=== PATIENT | male | born 1990 | race Hispanic/Latino ===

== ENCOUNTER 2021-12-14 16:14 | Emergency (ER) | payer SELFPAY ==
[~2021-12-14] VITALS: Ht 182.9 cm; Wt 170.1 kg
[2021-12-14] MEDS ORDERED: DIPHTH/TETANUS/ACEL. PERTUSSIS 0.5 ML SYR IM ONE (16:45)
[2021-12-14] MEDS ORDERED: TETANUS/DIPHTHERIA TOX ADULT 0.5 ML SYR ONE (17:11)
== END 2021-12-14 17:49 | disposition home or self-care (01) ==
LOC: FSED 16:18
DX: E66.01 Morbid (severe) obesity due to excess calories (principal); S61.210A Laceration without foreign body of right index finger without damage to nail, initial encounter; Z23 Encounter for immunization; F17.290 Nicotine dependence, other tobacco product, uncomplicated; Z71.6 Tobacco abuse counseling; W45.8XXA Other foreign body or object entering through skin, initial encounter
CPT/HCPCS: 90714; 99284

== ENCOUNTER 2025-02-06 06:28 | Emergency (ER) | payer SELFPAY ==
[~2025-02-06] VITALS: Ht 185.4 cm; Wt 172.8 kg
[2025-02-06 06:45] VITALS: PULSE 62; RESP 18; TEMP 98.5; O2SAT 98
[2025-02-06] MEDS: MAGNESIUM/ALUMINUM/SIMETHICONE 30 ML UDC PO ONE (07:34)
[2025-02-06] MEDS: BELLADONNA ALK/PHENOBARBITAL 5 ML UDC PO ONE (07:34)
[2025-02-06] MEDS: LIDOCAINE VISC 2% SOLN 15 ML UDC PO ONE (07:34)
[2025-02-06] MEDS ORDERED: HYDROXYZINE HCL25 MG PO (07:36)
== END 2025-02-06 07:43 | disposition home or self-care (01) ==
LOC: FSED 07:21
DX: R14.2 Eructation (principal); K21.9 Gastro-esophageal reflux disease without esophagitis; I10 Essential (primary) hypertension; E78.00 Pure hypercholesterolemia, unspecified; E66.01 Morbid (severe) obesity due to excess calories; F17.210 Nicotine dependence, cigarettes, uncomplicated
CPT/HCPCS: 99284